=== PATIENT | female | born 1990 | race American Indian/Alaskan Native ===

== ENCOUNTER 2017-09-30 22:54 | Emergency (ER) | payer MEDICAID, OTHER ==
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
[2017-09-30] MEDS ORDERED: Metoclopramide 10 MG/2 ML SDV IVPUSH ONE (23:43)
[2017-09-30] MEDS ORDERED: Meperidine PF 50 MG/ML Syringe IVPUSH ONE (23:43)
[2017-09-30] MEDS ORDERED: Dextrose 5%-0.9% NaCl 1,000 ML IV SCH (23:45)
[2017-10-01 01:54] VITALS: BP 126/80
--- NOTE | 2017-10-01 12:39 | CT ---
Head CT Technique: Multiple axial sections through the brain were obtained. Intravenous contrast was not utilized. Comparison: No previous intracranial imaging. Findings: Ventricles along the basal cisterns and sulci over the convexities are within normal limits for the patient's age. No abnormal parenchymal densities are seen. No evidence of intracranial hemorrhage. No midline shift or mass effect is seen. Bone window settings were reviewed which show no acute calvarial abnormality. Visualized sinuses are clear. Impression: 1. Nothing acute is identified on noncontrast head CT study. Diagnostic code #1 I agree with preliminary report from [facility], finalized at 10/01/17, 2:13 AM Central Time
--- NOTE | 2017-10-01 12:39 | CT ---
CT lumbar spine Technique: Multiple axial sections were obtained through the lumbar spine. Reconstructed coronal and sagittal images were obtained. Findings: Vertebral body heights and disc spaces are maintained. No fracture or subluxation is seen. No traumatic disc herniation is identified. No central canal stenosis or neural foraminal stenosis is seen. Impression: 1. No abnormality is appreciated on CT study of the lumbar spine. Diagnostic code #1 I agree with preliminary report from [facility], finalized at 10/01/17, 2:22 AM Central Time
--- NOTE | 2017-10-01 12:39 | CT ---
CT thoracic spine Technique: Multiple axial sections through the thoracic spine were obtained. Reconstructed coronal and sagittal images were reviewed. Comparison: No previous thoracic spine imaging. Findings: Vertebral body heights and disc spaces are maintained. No bony central or bony neural foraminal stenosis is seen. No fracture is identified. No gross disc herniation is seen. Impression: 1. No abnormality is identified on CT study of the thoracic spine. Diagnostic code #1 I agree with preliminary report from [facility], finalized at 10/01/17, 2:22 AM Central Time
--- NOTE | 2017-10-01 12:39 | CT ---
CT cervical spine Technique: Multiple axial sections through the cervical spine were obtained from above C1 inferiorly to the bottom of T2. Reconstructed sagittal and coronal images were reviewed. Comparison: No prior cervical spine imaging. Findings: Vertebral body heights and disc spaces are maintained. Posterior skull base is intact. Vertebral bodies and posterior arches are intact. No fracture is seen. No bony central or bony neural foraminal stenosis is seen. No abnormal subluxation is seen on the reconstructed sagittal images. Impression: 1. No abnormality is identified on CT study of the cervical spine. Diagnostic code #1 I agree with preliminary report from [facility], finalized at 10/01/17, 2:16 AM Central Time
--- NOTE | 2017-10-01 12:39 | CT ---
CT chest Technique: Multiple axial sections were obtained from above the lung apices inferiorly through the lung bases. Intravenous contrast was utilized. Comparison: No previous chest imaging. Findings: Mediastinum and hilar regions show no adenopathy or mass. No axillary adenopathy is seen. No pericardial thickening is seen. Lungs are clear. No pulmonary contusion or pleural effusions are seen. No pneumothorax is identified. No discrete rib abnormality is seen. Impression: 1. No abnormality is identified on CT study of the chest. Diagnostic code #1 I agree with preliminary report from [facility], finalized at 10/01/17, 2:[address] abdomen and pelvis Technique: Multiple axial sections were obtained from above the dome of the diaphragm inferiorly through the pubic symphysis. Intravenous contrast was utilized. No oral contrast has been given. Comparison: No prior abdominal or pelvic imaging is available. Findings: Liver shows no focal abnormality. Gallbladder contains no calcified gallstones. Spleen appears within normal limits. Adrenal glands show no nodule. Kidneys show symmetric contrast enhancement without hydronephrosis or mass. Several minimal nonobstructing stones are noted within the kidneys. Pancreas appears normal. Aorta shows no aneurysmal dilatation. No retroperitoneal adenopathy or mesenteric abnormalities are seen. No pelvic mass or adenopathy is seen. Delayed images show contrast within the ureters and bladder. Appendix not visualized with certainty. Bone window settings were reviewed which show nothing acute within the lumbar spine or pelvis. Impression: 1. Incidental nonobstructing calculi within both kidneys. 2. Nothing acute seen on CT study of the abdomen and pelvis. Diagnostic code #2 Agree with preliminary report issued by [facility] ([facility] preliminary report dictated on 10/01/17, 2:45 AM Central Time)
== END 2017-10-01 01:59 | disposition home or self-care (01) ==
LOC: JD.ED 22:54
DX: S30.811A Abrasion of abdominal wall, initial encounter (principal); T14.8XXA Other injury of unspecified body region, initial encounter; V09.20XA Pedestrian injured in traffic accident involving unspecified motor vehicles, initial encounter; Y92.410 Unspecified street and highway as the place of occurrence of the external cause
CPT/HCPCS: 36415; 70450; 71260; 72125; 72128; 72131; 74177; 80053; 82550; 85025; 96361; 96374; 96375; 99284; G0480; J2175; J2765; J7042

== ENCOUNTER 2019-12-05 16:09 | Emergency (ER) | payer OTHER ==
[2019-12-05 16:26] VITALS: BP 138/91; PULSE 93
--- NOTE | 2019-12-05 16:30 | EDM.PDOC ---
ED HPI GENERAL MEDICAL PROBLEM - General Chief Complaint: Upper Extremity Injury/Pain Stated Complaint: HAND INJURY 4 DAYS AGO SWELLING AND BURNING Time Seen by Provider: 12/05/19 16:20 Source of Information: Reports: Patient History Limitations: Reports: No Limitations - History of Present Illness INITIAL COMMENTS - FREE TEXT/NARRATIVE: 29-year-old female presents to the ED with severe pain dorsal aspect of her left hand and rating up her forearm and wrist. She states she fell and landed almost knuckles first on the left hand about 4 days ago while she was out in [place]. She did have x-rays performed at the clinic and was told there was no fractures. She was placed in a aluminum splint and Ghanshyam wrap to hold it in place. She has been taking 800 mg of Motrin every 6 hours and pain is uncontrolled. She states the hand is becoming much more painful and swollen in the splint. States she had a small superficial laceration between the second and third webspace of her fingers and therefore is on cephalexin to prevent secondary infection. She denies any possibility of . She denies any other injuries. Onset: Sudden Onset Date: 12/01/19 Duration: Day(s):, Getting Worse Location: Reports: Upper Extremity, Left (Left) Quality: Reports: Ache ( hand wrist and distal forearm) Severity: Moderate (Down to 10 pain) Improves with: Reports: Rest Worsens with: Reports: Movement (Particularly any attempt to make a fist.) Context: Reports: Trauma (All), Other. 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 (She is on 800 mg of Motrin every 6 hours) - Related Data Allergies Allergy/AdvReac Type Severity Reaction Status Date / Time No Known Allergies Allergy Verified 09/30/17 22:59 Home Meds: Home Meds Cephalexin [Keflex] 500 mg PO Q6HR #40 capsule 01/23/15 [Rx] Ondansetron [Zofran ODT] 4 mg PO Q8H PRN #12 tab.dis 01/23/15 [Rx] Vit No.124/Iron/Folic [ Vitamin Tablet] 1 each PO DAILY #30 tablet 01/23/15 [Rx] Ibuprofen [Motrin] 800 mg PO Q8H #15 tablet 10/01/17 [Rx] Acetaminophen/HYDROcodone [[place] 325-5 MG] 1 tab PO Q4H #16 tablet 12/05/19 [Rx] Past Medical History - Past Health History Medical/Surgical History: Denies Medical/Surgical History Psychiatric History: Reports: Anxiety, Depression Social & Family History - Living Situation & Occupation Living situation: Reports: Single Occupation: Unemployed Review of Systems - Review of Systems Review Of Systems: See Below Constitutional: Denies: Chills, Diaphoresis, Fever, Weakness Eyes: Reports: No Symptoms Ears: Reports: No Symptoms Nose: Reports: No Symptoms Mouth/Throat: Reports: No Symptoms Respiratory: Reports: No Symptoms Cardiovascular: Reports: No Symptoms GI/Abdominal: Reports: No Symptoms Genitourinary: Reports: No Symptoms Musculoskeletal: Reports: Hand Pain (History of present illness) Skin: Reports: Other (Swelling and ecchymosis dorsal left hand) Neurological: Reports: No Symptoms Psychiatric: Reports: Depression (Trolled with medications.), Anxiety ED EXAM, GENERAL - Physical Exam Exam: See Below Exam Limited By: No Limitations General Appearance: Alert, WD/WN, Moderate Distress, Other (Vital signs show temperature 36.8. Heart rate 93 respiratory 16 BP 138/91. Pulse ox 97% on room air) Eye Exam: Bilateral Eye: Normal Inspection, PERRL Extremities: Other (Examination was limited to the left upper extremity. She is in a volar aluminum splint. It was wrapped with an Ghanshyam wrap and perhaps a little bit too tight. She has marked ecchymoses of the dorsal aspect of her left hand with marked swelling. Also all of the fingers are swollen from not being able to move. There is a healing superficial 1.5 cm laceration between the webspace of the third and second fingers without any signs of infection. She has very minimal pain on firm compression of the carpal bones. Says some pain in her volar extensor surface of her forearm as well. There is mild ecchymoses on the palmar aspect of the left hand. Splint was removed by me.) Course - Vital Signs Last Recorded V/S: Last Vital Signs Temp 36.8 C 12/05/19 16:21 Pulse 93 12/05/19 16:21 Resp 16 12/05/19 16:21 BP 138/91 H 12/05/19 16:21 Pulse Ox 97 12/05/19 16:21 - Radiology Interpretation Free Text/Narrative:: 29-year-old female presents to the ED for reevaluation of an injury to her left upper extremity from a fall 4 days ago while she was out in [place]. She states she tripped up and fell basically fist first into the concrete. She suffered a superficial laceration between the third and fourth fingers of the left hand which was cleansed and dressed. She had x-rays of her hand and forearm performed and was told there was no fractures. She was placed in a volar aluminum splint and Ghanshyam wrap in place. She states she has been using Motrin 800 mg every 6 hours and not getting any pain relief. The hand and fingers have become much more swollen over the last 36 hours. Pain is constant and throbbing. Denies any other injuries. I remove the splint and there is indeed great amount of swelling dorsal aspect of the left hand suspicious for metacarpal fracture. Minimal pain on firm compression of the carpal bones but some pain in the musculature of the extensor surface of the distal forearm. She is unable to make a fist. Of the fingers are edematous and swollen from not being able to move. Repeat x-rays left hand and wrist area. - Re-Assessments/Exams Free Text/Narrative Re-Assessment/Exam: 12/05/19 16:59 trays of the left hand reveal any fractures of the fingers or metacarpals. 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 Therefore most of the swelling and ecchymosis is due to the trauma to the dorsal hand and knuckles from falling initially plus the fact that she not been able to move them for the last 4 days due to being in a splint. I have advised her to leave the splint off and just simply keep it elevated in the sling and to start slowly begin moving her fingers and allow the swelling to dissipate. I will place her on [place] tabs 5/325 mg 1 or 2 every 4-6 hours for pain relief for the next 2 to 3 days 16 tablets provided. Departure - Departure Time of Disposition: 17:00 Disposition: Home, Self-Care 01 Condition: Fair Clinical Impression: Contusion of left hand including fingers Qualifiers: Encounter type: initial encounter Qualified Code(s): S60.222A - Contusion of left hand, initial encounter - Discharge Information *PRESCRIPTION DRUG MONITORING PROGRAM REVIEWED*: Not Applicable *COPY OF PRESCRIPTION DRUG MONITORING REPORT IN PATIENT VENKATESH: Not Applicable Prescriptions: Acetaminophen/HYDROcodone [[place] 325-5 MG] 1 tab PO Q4H #16 tablet Instructions: How To Use a Sling, [id number], Hand Contusion, [id number] Referrals: PCP,Not In Area [Primary Care Provider] - Forms: ED Department Discharge Additional Instructions: Evaluation in the emergency room today in regards to persistent pain left dorsal hand wrist and forearm. Injury occurred 4 days ago from a fall with blunt force trauma to the knuckles of your left hand and dorsal hand. X-rays done in [place] apparently were reported as negative for fractures. On examination here you have significant bruising and swelling of all of your fingers and dorsal left hand. Repeat x-rays however did not reveal any fractures in any of the finger bones or the metacarpal bones of your hand or wrist bones or your distal forearm. The swelling is partially due to the trauma you experience from the fall but also made worse perhaps by the splint that you are wearing with the Ghanshyam wrap perhaps a bit too tight immobilizing your fingers from ability to pump the blood back to your heart. I would suggest leaving your left hand out of the splint at this time and just keeping it in the sling above the level of your heart for the next 2 to 3 days to allow the swelling to go down. May apply heat to the dorsal hand for 15 to 20 minutes every 3-4 hours to help the swelling go down. Expect marked improvement over the next 3 days. Use [place] 5/325 mg tabs 1 every 4 hours as necessary for pain relief for the next 2 to 3 days until you regain range of motion and the swelling goes down. Sepsis Event Note - Focused Exam Vital Signs: Vital Signs Temp Pulse Resp BP Pulse Ox 12/05/19 16:21 36.8 C 93 16 138/91 H 97 Date Exam was Performed: 12/05/19 Time Exam was Performed: 18:11
--- NOTE | 2019-12-05 17:51 | CR ---
Left hand: 4 views of the left hand were obtained. Comparison: No previous hand or wrist exam. Ununited fracture is noted within the mid navicular bone which appears to be old. Slight collapse of the proximal pole is seen. Soft tissue swelling is noted dorsally. Joint spaces are preserved. No acute fracture or other bony abnormality is appreciated. Impression: 1. 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 2. Soft tissue swelling. 3. No acute bony abnormality is appreciated. Diagnostic code #3 This report was dictated in MDT
== END 2019-12-05 17:22 | disposition home or self-care (01) ==
LOC: JD.ED 16:09
DX: S61.412A Laceration without foreign body of left hand, initial encounter (principal); S60.00XA Contusion of unspecified finger without damage to nail, initial encounter; F41.9 Anxiety disorder, unspecified; F32.9 Major depressive disorder, single episode, unspecified; Z79.899 Other long term (current) drug therapy; W45.8XXA Other foreign body or object entering through skin, initial encounter
CPT/HCPCS: 29125; 73130-26-LT; 73130-LT; 99283; 99283-25

== ENCOUNTER 2020-12-27 03:50 | Inpatient (IN) | payer OTHER, MEDICAID ==
[2020-12-27] MEDS ORDERED: Nitrofurantoin Monohydrate/Macrocrystalline 100 MG Cap PO ONE (06:27)
[2020-12-27] MEDS ORDERED: Acetaminophen/Codeine 300-30 MG Tab PO ONE (06:29)
[2020-12-27] MEDS ORDERED: Sodium Chloride 0.9% 1,000 ML ONE (08:01)
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
[2020-12-27] MEDS ORDERED: Sodium Chloride 0.9% 1,000 ML IV ONE (08:35)
[2020-12-27] MEDS ORDERED: Dextrose 5%-Lactated Ringers 1,000 ML IV SCH (08:45)
[2020-12-27] MEDS: cefTRIAXone 2 GM in Sodium Chloride 0.9% 100 ML IV SCH (08:59)
[2020-12-27] MEDS ORDERED: oxyCODONE 5 MG Tab PO ONE ×2 (09:00→18:21)
--- NOTE | 2020-12-27 10:48 | US ---
Renal ultrasound: Multiple real-time images of the kidneys were obtained. Comparison: No prior renal ultrasound, prior CT abdomen and pelvis exam of 10/01/17. Findings: Right renal pelvis is minimally dilated. Left renal pelvis shows no dilatation. No discrete cyst or discrete solid abnormality is seen within either kidney. Bilateral ureteral jets are seen. Prevoid bladder volume is 192 mL and postvoid bladder volume is 0 mL. Resistivity indices are normal. Right kidney length is 11.3 cm and left kidney length is 10.1 cm. Impression: 1. Slightly dilated collecting system within the right kidney. This may be a normal variant although it can also be seen with infection if the patient has correlating symptoms. 2. Other portions of the renal ultrasound are within normal limits. Diagnostic code #2
--- NOTE | 2020-12-27 10:51 | US ---
Limited abdominal ultrasound: Multiple real-time images of the right upper abdomen were obtained. Gallbladder shows evidence of intraluminal debris compatible with multiple gallstones. Gallbladder wall is normal in size. No biliary duct dilatation is seen. Impression: 1. Gallstones with no gallbladder wall thickening or biliary duct dilatation. Diagnostic code #2
--- NOTE | 2020-12-27 12:07 | PCM.CONS ---
H&P History of Present Illness - General Date of Service: 12/27/20 Admit Problem/Dx: Patient Status Order with Admit Dx/Problem 12/27/20 04:07 Patient Status [ADT] Routine Admission Diagnosis/Problem Admission Diagnosis/Problem 12/27/20 08:12 Deborah is a 30-year-old 3 para 2-0-0-2 female presently at 28 weeks gestational age with an MURRAY of 03/18/2021 who is admitted with right flank/upper abdominal pain in . Source of Information: Patient, Provider History Limitations: Reports: No Limitations - History of Present Illness Initial Comments - Free Text/Narative: Ms. Chapman is a 30-year-old woman who is 7 months who presented to the emergency room early this morning with abdominal pain. Her symptoms began approximately 4 days ago. She describes the pain initially as right flank pain and back pain, which radiated around toward the front and up towards the right shoulder. The pain has been steadily progressing in severity, although she feels better today than yesterday after receiving pain medication. The pain is worse when she is up moving around, bending over, and taking deep breaths. She had one episode of chills and malaise yesterday lasting about an hour but otherwise has had no other symptoms. She was admitted to the labor and delivery unit this morning and work-up to date includes routine labs and ultrasound imaging. Urinalysis suggested possible urinary tract infection, and antibiotics were started. Retroperitoneal ultrasound was without abnormal findings. Ultrasound of the liver showed evidence of gallstones in the gallbladder without signs of biliary obstruction or inflammatory change the gallbladder. Her white count is significantly elevated at 20,000. She denies nausea or vomiting and has been eating a regular diet without problems. Her last regular bowel movement was yesterday, and she continues to pass flatus. She denies dysuria. She has never had abdominal pain like this in the past. She has had no prior abdominal operations. She has no chronic medical problems and no drug allergies. - Related Data Allergies/Adverse Reactions: Allergies Allergy/AdvReac Type Severity Reaction Status Date / Time No Known Allergies Allergy Verified 12/27/20 04:07 Home Medications: Home Meds Vit No.124/Iron/Folic [ Vitamin Tablet] 1 each PO DAILY #30 tablet 01/23/15 [Rx] Ferrous Sulfate [Iron] 325 mg PO DAILY 12/27/20 [History] Past Medical History - Past Health History Medical/Surgical History: Denies Medical/Surgical History Psychiatric History: Reports: Anxiety, Depression Social & Family History - Family History Family Medical History: No Pertinent Family History - Caffeine Use Caffeine Use: Reports: Coffee - Living Situation & Occupation Living situation: Reports: Single Occupation: Unemployed H&P Review of Systems - Review of Systems: Review Of Systems: See Below General: Reports: Chills, Malaise HEENT: Reports: No Symptoms Pulmonary: Reports: No Symptoms Cardiovascular: Reports: No Symptoms Gastrointestinal: Reports: Abdominal Pain, Flatus Genitourinary: Reports: Frequency Musculoskeletal: Reports: No Symptoms Skin: Reports: No Symptoms Psychiatric: Reports: No Symptoms Neurological: Reports: No Symptoms Hematologic/Lymphatic: Reports: No Symptoms Immunologic: Reports: No Symptoms Exam - Exam Exam: See Below - Vital Signs Vital Signs: Last Vital Signs Temp 36.3 C 12/27/20 04:17 Pulse 88 12/27/20 11:07 Resp 16 12/27/20 04:17 BP 99/60 12/27/20 11:07 Pulse Ox 100 12/27/20 04:17 Weight: 89.675 kg - Exam General: Alert, Oriented, Cooperative HEENT: Conjunctiva Clear Neck: Supple, Trachea Midline Lungs: Clear to Auscultation, Normal Respiratory Effort Cardiovascular: Regular Rate, Regular Rhythm GI/Abdominal Exam: Other (Gravid uterus, soft abdomen, no palpable mass or tenderness on deep palpation) - Patient Data Lab Results Last 24 hrs: Laboratory Results - last 24 hr 12/27/20 12/27/20 12/27/20 Range/Units 05:25 05:25 06:50 WBC 21.82 H (3.98-10.04) K/mm3 RBC 3.55 L (3.98-5.22) M/mm3 Hgb 10.1 L D (11.2-15.7) gm/dl Hct 30.1 L (34.1-44.9) % MCV 84.8 D (79.4-94.8) fl MCH 28.5 (25.6-32.2) pg MCHC 33.6 (32.2-35.5) g/dl RDW Std Deviation 37.7 (36.4-46.3) fL Plt Count 203 (182-369) K/mm3 MPV 9.7 (9.4-12.3) fl Neut % (Auto) 86.2 H (34.0-71.1) % Lymph % (Auto) 6.0 L (19.3-51.7) % Grant % (Auto) 6.7 (4.7-12.5) % Eos % (Auto) 0.5 L (0.7-5.8) Baso % (Auto) 0.1 (0.1-1.2) % Neut # (Auto) 18.81 H (1.56-6.13) K/mm3 Lymph # (Auto) 1.31 (1.18-3.74) K/mm3 Grant # (Auto) 1.46 H (0.24-0.36) K/mm3 Eos # (Auto) 0.11 (0.04-0.36) K/mm3 Baso # (Auto) 0.02 (0.01-0.08) K/mm3 Manual Slide Review Abnormal smear Sodium (136-145) mEq/L Potassium (3.5-5.1) mEq/L Chloride (98-107) mEq/L Carbon Dioxide (21-32) mEq/L Anion Gap (5-15) BUN (7-18) mg/dL Creatinine (0.55-1.02) mg/dL Est Cr Clr Drug Dosing mL/min Estimated GFR (MDRD) (>60) mL/min BUN/Creatinine Ratio (14-18) Glucose (70-99) mg/dL Calcium (8.5-10.1) mg/dL Total Bilirubin (0.2-1.0) mg/dL AST (15-37) U/L ALT (14-59) U/L Alkaline Phosphatase (46-116) U/L Total Protein (6.4-8.2) g/dl Albumin (3.4-5.0) g/dl Globulin gm/dL Albumin/Globulin Ratio (1-2) Urine Color Light yellow (Yellow) Urine Appearance Slt cloudy H (Clear) Urine pH 6.0 (5.0-8.0) Ur Specific [place] 1.015 (1.005-1.030) Urine Protein Trace H (Negative) Urine Glucose (UA) Negative (Negative) Urine Ketones Trace H (Negative) Urine Occult Blood Trace-intact H (Negative) Urine Nitrite Negative (Negative) Urine Bilirubin Negative (Negative) Urine Urobilinogen 0.2 (0.2-1.0) Ur Leukocyte Esterase 2+ H (Negative) Urine RBC 0-5 (0-5) /hpf Urine WBC 10-20 H (0-5) /hpf Ur Squamous Epith Cells 0-5 (0-5) /hpf Urine Bacteria Few (FEW) /hpf Urine Mucus Not seen (FEW) /hpf Urine Yeast Rare H (NOT SEEN) Urine Opiates Screen Negative (ZQATFA=299) Ur Buprenorphine Scrn Negative (CUTOFF=10) Ur Oxycodone Screen Negative (WAP2VJ=185) Urine Methadone Screen Negative (TXWJJX=389) Ur Propoxyphene Screen Negative (YKGBBK=932) Ur Barbiturates Screen Negative (VFVVWR=542) Ur Tricyclics Screen Negative (MNDVEB=600) Ur Phencyclidine Scrn Negative (CUTOFF=25) Ur Amphetamine Screen Negative (FKCJKD=894) U Methamphetamines Scrn Negative (SNFTNL=700) U Benzodiazepines Scrn Negative (XLKRWY=072) U Cocaine Metab Screen Negative (ORKLVQ=757) U Marijuana (THC) Screen Negative (CUTOFF=50) 12/27/20 Range/Units 06:50 WBC (3.98-10.04) K/mm3 RBC (3.98-5.22) M/mm3 Hgb (11.2-15.7) gm/dl Hct (34.1-44.9) % MCV (79.4-94.8) fl MCH (25.6-32.2) pg MCHC (32.2-35.5) g/dl RDW Std Deviation (36.4-46.3) fL Plt Count (182-369) K/mm3 MPV (9.4-12.3) fl Neut % (Auto) (34.0-71.1) % Lymph % (Auto) (19.3-51.7) % Grant % (Auto) (4.7-12.5) % Eos % (Auto) (0.7-5.8) Baso % (Auto) (0.1-1.2) % Neut # (Auto) (1.56-6.13) K/mm3 Lymph # (Auto) (1.18-3.74) K/mm3 Grant # (Auto) (0.24-0.36) K/mm3 Eos # (Auto) (0.04-0.36) K/mm3 Baso # (Auto) (0.01-0.08) K/mm3 Manual Slide Review Sodium 140 (136-145) mEq/L Potassium 3.4 L (3.5-5.1) mEq/L Chloride 107 (98-107) mEq/L Carbon Dioxide 24 (21-32) mEq/L Anion Gap 12.4 (5-15) BUN 4 L (7-18) mg/dL Creatinine 0.8 (0.55-1.02) mg/dL Est Cr Clr Drug Dosing 92.53 mL/min Estimated GFR (MDRD) > 60 (>60) mL/min BUN/Creatinine Ratio 5.0 L (14-18) Glucose 105 H (70-99) mg/dL Calcium 8.1 L (8.5-10.1) mg/dL Total Bilirubin 0.4 (0.2-1.0) mg/dL AST 14 L (15-37) U/L ALT 16 (14-59) U/L Alkaline Phosphatase 89 (46-116) U/L Total Protein 6.1 L (6.4-8.2) g/dl Albumin 2.2 L (3.4-5.0) g/dl Globulin 3.9 gm/dL Albumin/Globulin Ratio 0.6 L (1-2) Urine Color (Yellow) Urine Appearance (Clear) Urine pH (5.0-8.0) Ur Specific [place] (1.005-1.030) Urine Protein (Negative) Urine Glucose (UA) (Negative) Urine Ketones (Negative) Urine Occult Blood (Negative) Urine Nitrite (Negative) Urine Bilirubin (Negative) Urine Urobilinogen (0.2-1.0) Ur Leukocyte Esterase (Negative) Urine RBC (0-5) /hpf Urine WBC (0-5) /hpf Ur Squamous Epith Cells (0-5) /hpf Urine Bacteria (FEW) /hpf Urine Mucus (FEW) /hpf Urine Yeast (NOT SEEN) Urine Opiates Screen (DNUQWE=450) Ur Buprenorphine Scrn (CUTOFF=10) Ur Oxycodone Screen (JLY2FA=802) Urine Methadone Screen (SPMXIV=316) Ur Propoxyphene Screen (ERBEWL=616) Ur Barbiturates Screen (HZHQRK=873) Ur Tricyclics Screen (OVUWDK=279) Ur Phencyclidine Scrn (CUTOFF=25) Ur Amphetamine Screen (EHUXBP=905) U Methamphetamines Scrn (ASZHAR=694) U Benzodiazepines Scrn (XWBOWZ=396) U Cocaine Metab Screen (HKCUYS=632) U Marijuana (THC) Screen (CUTOFF=50) Result Diagrams: 12/27/20 06:50 12/27/20 06:50 Sepsis Event Note - Focused Exam Vital Signs: Vital Signs Temp Pulse Pulse Resp BP BP Pulse Ox 12/27/20 11:07 88 99/60 12/27/20 09:57 98 12/27/20 08:39 93 12/27/20 07:33 82 12/27/20 07:03 89 12/27/20 06:38 98 12/27/20 06:03 80 12/27/20 05:33 67 12/27/20 05:03 71 12/27/20 04:33 85 12/27/20 04:17 36.3 C 83 16 108/63 100 12/27/20 04:13 82 Consult PN Assessment/Plan Procedures: Procedures ASSAY OF CK (CPK) (09/30/17) CHORIONIC GONADOTROPIN TEST (01/27/15) COMPLETE CBC W/AUTO DIFF WBC (09/30/17) COMPREHEN METABOLIC PANEL (09/30/17) CT ABD & PELV W/CONTRAST (09/30/17) CT CHEST SPINE W/O DYE (09/30/17) CT HEAD/BRAIN W/O DYE (09/30/17) CT LUMBAR SPINE W/O DYE (09/30/17) CT NECK SPINE W/O DYE (09/30/17) CT THORAX DX C+ (09/30/17) CULTURE SCREEN ONLY (01/23/15) EMERGENCY DEPT VISIT (12/05/19) EMERGENCY DEPT VISIT (09/30/17) EMERGENCY DEPT VISIT (01/23/15) HYDRATE IV INFUSION ADD-ON (09/30/17) ROUTINE VENIPUNCTURE (09/30/17) STREP A AG IA (01/23/15) THER/PROPH/DIAG INJ IV PUSH (09/30/17) TRANSVAGINAL US OBSTETRIC (01/27/15) TX/PRO/DX INJ NEW DRUG ADDON (09/30/17) URINALYSIS AUTO W/SCOPE (01/23/15) URINE CULTURE/COLONY COUNT (01/23/15) URINE TEST (01/23/15) X-RAY EXAM OF ANKLE (01/14/18) X-RAY EXAM OF HAND (12/05/19) Problem List Initiated/Reviewed/Updated: Yes My Orders Last 24 Hours: My Active Orders 12/27/20 12:01 Schedule Procedure [COMM] Routine Plan: History, labs, imaging, and exam are most suggestive of acute calculous cholecystitis, though differential includes appendicitis and pancreatitis. Plan for diagnostic laparoscopy/ laparoscopic cholecystectomy this afternoon.
[2020-12-27] MEDS ORDERED: Sodium Chloride 0.9% 10 ML Syringe FLUSH PRN ×2 (12:36→16:51)
[2020-12-27] MEDS ORDERED: Citric Acid/Sodium Citrate Solution 30 ML Cup PO ONE (12:36)
[2020-12-27] MEDS ORDERED: Lidocaine 1%/Sod Bicarbonate in NS 8.4% 1 ML Syringe IDERM PRN (12:36)
[2020-12-27] MEDS ORDERED: fentaNYL 100 MCG/2 ML SDV IVPUSH PRN (12:37)
[2020-12-27] MEDS ORDERED: HYDROmorphone 0.5 MG/0.5 ML Syringe IVPUSH PRN (12:37)
[2020-12-27] MEDS ORDERED: Ondansetron 4 MG/2 ML SDV IVPUSH PRN (12:37)
[2020-12-27] MEDS ORDERED: Morphine 2 MG/ML SYRINGE IVPUSH PRN (12:38)
--- NOTE | 2020-12-27 12:54 | PCM.PREANE ---
Preanesthetic Assessment - Procedure Proposed Procedure: Lap willy - Anesthesia/Transfusion/Family Hx Anesthesia History: Prior Anesthesia Without Reaction Family History of Anesthesia Reaction: No Transfusion History: No Prior Transfusion(s) Intubation History: Unknown - Review of Systems General: No Symptoms Pulmonary: No Symptoms Cardiovascular: No Symptoms Gastrointestinal: Nausea (yesterday nauea and chills self limiting) Neurological: No Symptoms Other: Reports: None - Physical Assessment NPO Status Date: 12/27/20 NPO Status Time: 10:00 Vital Signs: Last Vital Signs Temp 36.3 C 12/27/20 04:17 Pulse 88 12/27/20 11:07 Resp 16 12/27/20 04:17 BP 99/60 12/27/20 11:07 Pulse Ox 100 12/27/20 04:17 Height: 1.65 m Weight: 89.675 kg ASA Class: 2E Mental Status: Alert & Oriented x3 Thyro-Mental Finger Breadths: 3 Mouth Opening Finger Breadths: 4 ROM/Head Extension: Full Lungs: Clear to Auscultation, Normal Respiratory Effort Cardiovascular: Regular Rate, Regular Rhythm - Lab Values: Laboratory Last Values WBC 21.82 K/mm3 (3.98-10.04) H 12/27/20 06:50 RBC 3.55 M/mm3 (3.98-5.22) L 12/27/20 06:50 Hgb 10.1 gm/dl (11.2-15.7) L D 12/27/20 06:50 Hct 30.1 % (34.1-44.9) L 12/27/20 06:50 MCV 84.8 fl (79.4-94.8) D 12/27/20 06:50 MCH 28.5 pg (25.6-32.2) 12/27/20 06:50 MCHC 33.6 g/dl (32.2-35.5) 12/27/20 06:50 RDW Std Deviation 37.7 fL (36.4-46.3) 12/27/20 06:50 Plt Count 203 K/mm3 (182-369) 12/27/20 06:50 MPV 9.7 fl (9.4-12.3) 12/27/20 06:50 Neut % (Auto) 86.2 % (34.0-71.1) H 12/27/20 06:50 Lymph % (Auto) 6.0 % (19.3-51.7) L 12/27/20 06:50 [place] % (Auto) 6.7 % (4.7-12.5) 12/27/20 06:50 Eos % (Auto) 0.5 (0.7-5.8) L 12/27/20 06:50 Baso % (Auto) 0.1 % (0.1-1.2) 12/27/20 06:50 Neut # (Auto) 18.81 K/mm3 (1.56-6.13) H 12/27/20 06:50 Lymph # (Auto) 1.31 K/mm3 (1.18-3.74) 12/27/20 06:50 [place] # (Auto) 1.46 K/mm3 (0.24-0.36) H 12/27/20 06:50 Eos # (Auto) 0.11 K/mm3 (0.04-0.36) 12/27/20 06:50 Baso # (Auto) 0.02 K/mm3 (0.01-0.08) 12/27/20 06:50 Manual Slide Review Abnormal smear 12/27/20 06:50 Sodium 140 mEq/L (136-145) 12/27/20 06:50 Potassium 3.4 mEq/L (3.5-5.1) L 12/27/20 06:50 Chloride 107 mEq/L (98-107) 12/27/20 06:50 Carbon Dioxide 24 mEq/L (21-32) 12/27/20 06:50 Anion Gap 12.4 (5-15) 12/27/20 06:50 BUN 4 mg/dL (7-18) L 12/27/20 06:50 Creatinine 0.8 mg/dL (0.55-1.02) 12/27/20 06:50 Est Cr Clr Drug Dosing 92.53 mL/min 12/27/20 06:50 Estimated GFR (MDRD) > 60 mL/min (>60) 12/27/20 06:50 BUN/Creatinine Ratio 5.0 (14-18) L 12/27/20 06:50 Glucose 105 mg/dL (70-99) H 12/27/20 06:50 Calcium 8.1 mg/dL (8.5-10.1) L 12/27/20 06:50 Total Bilirubin 0.4 mg/dL (0.2-1.0) 12/27/20 06:50 AST 14 U/L (15-37) L 12/27/20 06:50 ALT 16 U/L (14-59) 12/27/20 06:50 Alkaline Phosphatase 89 U/L (46-116) 12/27/20 06:50 Total Protein 6.1 g/dl (6.4-8.2) L 12/27/20 06:50 Albumin 2.2 g/dl (3.4-5.0) L 12/27/20 06:50 Globulin 3.9 gm/dL 12/27/20 06:50 Albumin/Globulin Ratio 0.6 (1-2) L 12/27/20 06:50 Lipase 93 U/L (73-393) 12/27/20 12:09 Urine Color Light yellow (Yellow) 12/27/20 05:25 Urine Appearance Slt cloudy (Clear) H 12/27/20 05:25 Urine pH 6.0 (5.0-8.0) 12/27/20 05:25 Ur Specific [place] 1.015 (1.005-1.030) 12/27/20 05:25 Urine Protein Trace (Negative) H 12/27/20 05:25 Urine Glucose (UA) Negative (Negative) 12/27/20 05:25 Urine Ketones Trace (Negative) H 12/27/20 05:25 Urine Occult Blood Trace-intact (Negative) H 12/27/20 05:25 Urine Nitrite Negative (Negative) 12/27/20 05:25 Urine Bilirubin Negative (Negative) 12/27/20 05:25 Urine Urobilinogen 0.2 (0.2-1.0) 12/27/20 05:25 Ur Leukocyte Esterase 2+ (Negative) H 12/27/20 05:25 Urine RBC 0-5 /hpf (0-5) 12/27/20 05:25 Urine WBC 10-20 /hpf (0-5) H 12/27/20 05:25 Ur Squamous Epith Cells 0-5 /hpf (0-5) 12/27/20 05:25 Urine Bacteria Few /hpf (FEW) 12/27/20 05:25 Urine Mucus Not seen /hpf (FEW) 12/27/20 05:25 Urine Yeast Rare (NOT SEEN) H 12/27/20 05:25 Urine Opiates Screen Negative (PNJNFA=967) 12/27/20 05:25 Ur Buprenorphine Scrn Negative (CUTOFF=10) 12/27/20 05:25 Ur Oxycodone Screen Negative (HCP1OB=420) 12/27/20 05:25 Urine Methadone Screen Negative (VTGUTW=817) 12/27/20 05:25 Ur Propoxyphene Screen Negative (YBTZHR=939) 12/27/20 05:25 Ur Barbiturates Screen Negative (CXPECE=481) 12/27/20 05:25 Ur Tricyclics Screen Negative (DWTLXD=058) 12/27/20 05:25 Ur Phencyclidine Scrn Negative (CUTOFF=25) 12/27/20 05:25 Ur Amphetamine Screen Negative (CCUVOP=956) 12/27/20 05:25 U Methamphetamines Scrn Negative (FSZFYB=620) 12/27/20 05:25 U Benzodiazepines Scrn Negative (VRYLVG=127) 12/27/20 05:25 U Cocaine Metab Screen Negative (BIZGEI=557) 12/27/20 05:25 U Marijuana (THC) Screen Negative (CUTOFF=50) 12/27/20 05:25 - Allergies Allergies/Adverse Reactions: Allergies Allergy/AdvReac Type Severity Reaction Status Date / Time No Known Allergies Allergy Verified 12/27/20 04:07 - Blood Blood Available: Yes Product(s) Available: PRBC - Anesthesia Plan Pre-Op Medication Ordered: Antacids (bicitra/reglan ) - Acknowledgements Anesthesia Type Planned: General Anesthesia Pt an Appropriate Candidate for the Planned Anesthesia: Yes Alternatives and Risks of Anesthesia Discussed w Pt/Guardian: Yes Pt/Guardian Understands and Agrees with Anesthesia Plan: Yes Additional Comments: she does have an ankle bracelet on that is on her right ankle. she told the RN and i that hospital personal can take it off if necessary. i don't believe it should be necessary, however, i informed her to inform her public records officer that she is in the hospital and will be getting medications for surgery with us PreAnesthesia Questionnaire - Past Health History Medical/Surgical History: Denies Medical/Surgical History Psychiatric History: Reports: Anxiety, Depression - HOME MEDS Home Medications: Home Meds Vit No.124/Iron/Folic [ Vitamin Tablet] 1 each PO DAILY #30 tablet 01/23/15 [Rx] Ferrous Sulfate [Iron] 325 mg PO DAILY 12/27/20 [History] - CURRENT (IN HOUSE) MEDS Current Meds: Current Medications Fentanyl (Fentanyl 100 Mcg/2 Ml Sdv) 50 mcg IVPUSH Q5M PRN PRN Reason: Pain Hydromorphone HCl (Hydromorphone 0.5 Mg/0.5 Ml Syringe) 0.5 mg IVPUSH Q10M PRN PRN Reason: Pain (severe 7-10) Ceftriaxone Sodium 2 gm/ (Sodium Chloride) 100 mls @ 200 mls/hr IV Q24H [facility] Last Admin: 12/27/20 08:59 Dose: 200 mls/hr Documented by: Dextrose/Lactated Ringer's (Dextrose 5%-Lactated Ringers) 1,000 mls @ 150 mls/hr IV ASDIRECTED [facility] Last Admin: 12/27/20 09:40 Dose: 150 mls/hr Documented by: Lactated Ringer's (Ringers, Lactated) 1,000 mls @ 125 mls/hr IV ASDIRECTED [facility] Lidocaine/Sodium Bicarbonate (Lidocaine 1%/Sod Bicarbonate In Ns 8.4% 1 Ml Syringe) 0.25 ml IDERM ONETIME PRN PRN Reason: Prior to IV Start Morphine Sulfate (Morphine 2 Mg/Ml Syringe) 5 mg IVPUSH Q2H PRN PRN Reason: Pain Ondansetron HCl (Ondansetron 4 Mg/2 Ml Sdv) 4 mg IVPUSH ONETIME PRN PRN Reason: Nausea/Vomiting Oxycodone/Acetaminophen (Acetaminophen/Oxycodone 325-5 Mg Tab) 1 tab PO Q4H PRN PRN Reason: Pain (moderate 4-6) Oxycodone/Acetaminophen (Acetaminophen/Oxycodone 325-5 Mg Tab) 2 tab PO Q4H PRN PRN Reason: Pain (severe 7-10) Sodium Chloride (Sodium Chloride 0.9% 10 Ml Syringe) 10 ml FLUSH ASDIRECTED PRN PRN Reason: Keep Vein Open Discontinued Medications Acetaminophen/Codeine Phosphate (Acetaminophen/Codeine 300-30 Mg Tab) 2 tab PO ONETIME ONE Stop: 12/27/20 06:30 Last Admin: 12/27/20 07:04 Dose: 2 tab Documented by: Citric Acid/Sodium Citrate (Citric Acid/Sodium Citrate Solution 30 Ml Cup) 30 ml PO ONETIME ONE Stop: 12/27/20 12:37 Sodium Chloride (Normal Saline) Confirm Administered Dose 1,000 mls @ as directed .ROUTE .STK-MED ONE Stop: 12/27/20 08:02 Last Admin: 12/27/20 08:34 Dose: 999 mls/hr Documented by: Sodium Chloride (Normal Saline) 1,000 mls @ 999 mls/hr IV ONETIME ONE Stop: 12/27/20 09:35 Last Admin: 12/27/20 08:54 Dose: 999 mls/hr Documented by: Nitrofurantoin Macrocrystals (Nitrofurantoin Monohydrate/Macrocrystalline 100 Mg Cap) 100 mg PO ONETIME ONE Stop: 12/27/20 06:28 Last Admin: 12/27/20 07:04 Dose: 100 mg Documented by: Oxycodone HCl (Oxycodone 5 Mg Tab) 10 mg PO ONETIME ONE Stop: 12/27/20 09:01 Last Admin: 12/27/20 08:52 Dose: 10 mg Documented by:
[2020-12-27] MEDS ORDERED: fentaNYL 250 MCG/5 ML SDV ONE (13:17)
[2020-12-27] MEDS ORDERED: Rocuronium 50 MG/5 ML Vial ONE (13:17)
[2020-12-27] MEDS ORDERED: ceFAZolin 1 GM Vial ONE (13:17)
[2020-12-27] MEDS ORDERED: Lidocaine 1% 2 ML ONE (13:17)
[2020-12-27] MEDS ORDERED: Propofol 200 MG/20 ML SDV ONE (13:17)
[2020-12-27] MEDS ORDERED: Dexamethasone 4 MG/ML 5 ML MDV ONE (13:18)
[2020-12-27] MEDS ORDERED: Ondansetron 4 MG/2 ML SDV ONE (13:18)
[2020-12-27] MEDS ORDERED: Diphtheria,Pertussis(Acell),Tetanus Vaccine 0.5 ML Syringe IM ONE ×2 (14:27→14:45)
--- NOTE | 2020-12-27 16:33 | PCM.SN.2 ---
- Free Text/Narrative Note: Re-examined patient now- pain is worse, with chills. She has right CVA tenderness. Discussed with Dr. Padilla. I think the benefit of a CT of the abdomen and pelvis with IV contrast to rule out appendicitis may be helpful in avoiding going to the OR. If findings are more consistent with cholelithiasis or pyelonephritis we may be able to manage this for now with antibiotics alone. I discussed with patient and the team is in agreement with plan for CT scan now. OR plans are dependent on imaging findings and patient's clinical course.
[2020-12-27] MEDS: Lactated Ringers 1,000 ML IV SCH ×2 (16:35→19:21)
[2020-12-27] MEDS ORDERED: Iopamidol 612 MG/ML 100 ML Bottle IVPUSH ONE (16:51)
[2020-12-27] MEDS ORDERED: Metoclopramide 10 MG/2 ML SDV IV PRN (17:00)
[2020-12-27] MEDS ORDERED: Acetaminophen 325 MG Tab PO ONE (17:31)
[2020-12-27] MEDS ORDERED: Lactated Ringers 1,000 ML IV ONE (18:19)
--- NOTE | 2020-12-27 18:56 | CT ---
CT abdomen and pelvis Technique: Multiple axial sections through the abdomen and pelvis were obtained. Intravenous contrast was utilized. No oral contrast has been given. Comparison: Prior renal ultrasound exam performed earlier on the same day (8:52 AM) and prior gallbladder ultrasound also performed on the same day (9:35 AM). Prior CT abdomen and pelvis exam of 10/01/17. Findings: Visualized lung bases are clear with no acute parenchymal change. Liver shows no focal abnormality. Spleen size is normal. Adrenal glands show no nodule. No abnormality is seen within the pancreas. Gallbladder contains no calcified gallstones. Gallstones are seen on ultrasound exam which are not visualized on this CT study. Left kidneys show normal contrast enhancement. Diminished enhancement is noted within portions of the upper pole of the right kidney as well as a small area of diminished enhancement within the lower pole of the right kidney. Right ureter is also slightly prominent. As suggested on the renal ultrasound, these finding are highly suspicious for pyelonephritis. Abdominal aorta shows no aneurysm. No retroperitoneal adenopathy or mesenteric abnormalities are seen. Single intrauterine fetus is noted. Appendix is not visualized and there are no findings of appendicitis. No discrete pelvic mass or adenopathy is appreciated. Bone window settings were reviewed which show no acute osseous abnormality. Impression: 1. Findings within the right kidney and proximal right ureter are highly suspicious for pyelonephritis as suggested on recent ultrasound. 2. Patient is . 3. No other acute abnormality is seen on CT study of the abdomen and pelvis. Diagnostic code #3 I agree with preliminary report from [facility], finalized on 12/27/20, 6:56 PM CDT, code 1
--- NOTE | 2020-12-27 19:17 | PCM.SN.2 ---
- Free Text/Narrative Note: Progress note Subjective: Patient reports feeling well overall. Pain continues to be present and is improved with oral and IV medications. She reports that the pain starts to increase as the medication wears off. Tolerating regular diet. Voiding without difficulty. Ambulating without difficulty. Reports good movement. Objective: Vitals Vital Signs - 24 hr 12/27/20 12/27/20 12/27/20 04:13 04:17 04:33 Temperature Temperature [ 36.3 C Temporal] Pulse, 82 85 Peripheral Pulse, 83 Peripheral [ Pulse Oximetry] Respiratory 16 Rate Blood Pressure Blood Pressure 108/63 [Right Upper] O2 Sat by Pulse 100 Oximetry 12/27/20 12/27/20 12/27/20 05:03 05:33 06:03 Temperature Temperature [ Temporal] Pulse, 71 67 80 Peripheral Pulse, Peripheral [ Pulse Oximetry] Respiratory Rate Blood Pressure Blood Pressure [Right Upper] O2 Sat by Pulse Oximetry 12/27/20 12/27/20 12/27/20 06:38 07:03 07:33 Temperature Temperature [ Temporal] Pulse, 98 89 82 Peripheral Pulse, Peripheral [ Pulse Oximetry] Respiratory Rate Blood Pressure Blood Pressure [Right Upper] O2 Sat by Pulse Oximetry 12/27/20 12/27/20 12/27/20 08:39 09:57 11:07 Temperature Temperature [ Temporal] Pulse, 93 98 88 Peripheral Pulse, Peripheral [ Pulse Oximetry] Respiratory Rate Blood Pressure 99/60 Blood Pressure [Right Upper] O2 Sat by Pulse Oximetry 12/27/20 17:38 Temperature 39.2 C H Temperature [ Temporal] Pulse, Peripheral Pulse, Peripheral [ Pulse Oximetry] Respiratory Rate Blood Pressure Blood Pressure [Right Upper] O2 Sat by Pulse Oximetry Gen: No acute distress, alert and oriented Lungs: Unlabored breathing Heart: Tachycardia with heart rate in the 130s Abdomen: Soft, mild tenderness in the right upper lateral portion of the abdomen, right CVA tenderness, no guarding or rebound tenderness, no distention, gravid, no left CVA tenderness or left sided abdominal pain Assesment/Plan: Deborah Chapman is a 30-year-old -0-0-2 female at 28 weeks 3 days (MURRAY 03/18/2021) with pyelonephritis in and gallstones on ultrasound imaging without evidence of cholecystitis on CT scan * Pyelonephritis -patient diagnosed with pyelonephritis after having some concern for possible cholecystitis given gallstones on ultrasound. Patient had a CT scan that showed findings consistent with pyelonephritis and no evidence of cholecystitis or appendicitis. Patient developed a fever after she had the CT scan with fever up to 39.2 C. Patient has been treated with Tylenol 975 mg. Patient had been treated with Rocephin 2 g IV this morning. We will continue treatment with the Rocephin 2 g IV every 24 hours until she has had resolution of her pain and has been afebrile for 24 hours. * Plan for NST daily or more often as needed with concerns for wellbeing * Patient admitted to the hospital for ongoing treatment for pyelonephritis with IV antibiotics * Routine vitals for monitoring of blood pressure as well as for fever * Regular diet * Patient given IV fluid bolus of 1000 mL due to the fever and to continue on lactated Ringer's at 150 mL/h after 4 ongoing fluid hydration * We will follow up on the urine culture to ensure that the bacteria is sensitive to the chosen antibiotic * Anticipate discharge home once patient has improved and there is decreased amount of CVA tenderness and she has been afebrile for 24 hours Carlito Padilla MD 7:16 PM 12/27/2020
[2020-12-27] MEDS ORDERED: Docusate Sodium 100 MG Cap PO PRN (20:21)
[2020-12-28] MEDS: Acetaminophen/oxyCODONE 325-5 MG Tab PO PRN ×5 (01:17→19:05)
[2020-12-28] MEDS: Lactated Ringers 1,000 ML IV SCH ×2 (02:38→10:24)
[2020-12-28] MEDS: cefTRIAXone 2 GM in Sodium Chloride 0.9% 100 ML IV SCH (08:54)
[2020-12-28] MEDS: Ferrous Sulfate 324 MG Tab.EC PO SCH (08:56)
[2020-12-28] MEDS: Prenatal Multivitamin with Calcium/Folic Acid/Iron Tab PO SCH (08:56)
--- NOTE | 2020-12-28 09:51 | PCM.SN.2 ---
- Free Text/Narrative Note: Antepartum progress note Subjective: Patient reports feeling well overall. She reports that she is continuing to have some right-sided back pain but that it has been able to be controlled with oral medications. She used to Percocet at around 1 AM and then only required 1 Percocet at around 5:30 AM. She states that the pain has been significant enough to make it difficult for her to be able to sleep throughout the night. Tolerating regular diet but did have some nausea last evening after eating. Voiding without difficulty. Reports that she has not had a bowel movement in several days. Denies any significant pain or pressure similar to a bowel movement. Ambulating without difficulty. Reports good movement. Denies any cramping or contractions. Objective: Vitals Vital Signs - 8 hr 12/28/20 12/28/20 05:34 09:00 Temperature 36.7 C 36.4 C Pulse, 67 70 Peripheral Respiratory 14 14 Rate Blood Pressure 103/52 L 103/81 O2 Sat by Pulse 97 97 Oximetry Gen: No acute distress, alert and oriented Lungs: Clear to auscultation bilaterally Heart: Regular rate and rhythm Abdomen: Soft, mild right CVA tenderness that is less than it was on previous exam on HD #1, no guarding or rebound tenderness, no distention, gravid, no left CVA tenderness or left sided abdominal pain Extremities: No significant edema noted in bilateral lower extremities, no calf tenderness bilaterally NST in the morning of 12/28 heart rate: 130s, moderate variability, +10 x 10 accelerations, no decelerations Tocometer: Quiet Laboratory Results - last 24 hr 12/27/20 12/27/20 12/27/20 Range/Units 06:50 12:09 12:45 WBC (3.98-10.04) K/mm3 RBC (3.98-5.22) M/mm3 Hgb (11.2-15.7) gm/dl Hct (34.1-44.9) % MCV (79.4-94.8) fl MCH (25.6-32.2) pg MCHC (32.2-35.5) g/dl RDW Std Deviation (36.4-46.3) fL Plt Count (182-369) K/mm3 MPV (9.4-12.3) fl Neut % (Auto) (34.0-71.1) % Lymph % (Auto) (19.3-51.7) % [place] % (Auto) (4.7-12.5) % Eos % (Auto) (0.7-5.8) Baso % (Auto) (0.1-1.2) % Neut # (Auto) (1.56-6.13) K/mm3 Lymph # (Auto) (1.18-3.74) K/mm3 [place] # (Auto) (0.24-0.36) K/mm3 Eos # (Auto) (0.04-0.36) K/mm3 Baso # (Auto) (0.01-0.08) K/mm3 Manual Slide Review Lipase 93 (73-393) U/L SARS-CoV-2 RNA (DORINDA) Negative (NEGATIVE) Blood Type A POSITIVE Gel Antibody Screen Negative 12/28/20 Range/Units 08:00 WBC 20.34 H (3.98-10.04) K/mm3 RBC 3.15 L (3.98-5.22) M/mm3 Hgb 8.8 L (11.2-15.7) gm/dl Hct 27.2 L (34.1-44.9) % MCV 86.3 (79.4-94.8) fl MCH 27.9 (25.6-32.2) pg MCHC 32.4 (32.2-35.5) g/dl RDW Std Deviation 39.2 (36.4-46.3) fL Plt Count 191 (182-369) K/mm3 MPV 10.1 (9.4-12.3) fl Neut % (Auto) 76.6 H (34.0-71.1) % Lymph % (Auto) 12.2 L (19.3-51.7) % [place] % (Auto) 9.8 (4.7-12.5) % Eos % (Auto) 1.0 (0.7-5.8) Baso % (Auto) 0.1 (0.1-1.2) % Neut # (Auto) 15.57 H (1.56-6.13) K/mm3 Lymph # (Auto) 2.49 (1.18-3.74) K/mm3 [place] # (Auto) 1.99 H (0.24-0.36) K/mm3 Eos # (Auto) 0.20 (0.04-0.36) K/mm3 Baso # (Auto) 0.02 (0.01-0.08) K/mm3 Manual Slide Review Abnormal smear Lipase (73-393) U/L SARS-CoV-2 RNA (DORINDA) (NEGATIVE) Blood Type Gel Antibody Screen Imaging report Abdomen pelvis CT with contrast done on 12/27/2020 Impression: 1. Findings within the right kidney and proximal right ureter are highly suspicious for pyelonephritis as suggested on recent ultrasound. 2. Patient is . 3. No other acute abnormalities seen on CT study of the abdomen pelvis. Assessment/Plan: Deborah Chapman is a 30-year-old -0-0-2 female at 28 weeks 4 days (MURRAY 03/18/2021) with pyelonephritis in and gallstones on ultrasound imaging without evidence of cholecystitis on CT scan, HD #2 * Pyelonephritis -patient diagnosed with pyelonephritis based on findings from CT scan. Patient had a fever in the evening of HD #1 up to 39.2 C. Patient continues to have significant leukocytosis with WBC of 20.34. The neutrophil percent is also elevated at 76.6%. * Continue Rocephin 2 g IV daily for treatment of pyelonephritis * Plan for NST daily or more often as needed with concerns for wellbeing * Routine vitals for monitoring of blood pressure as well as for fever * Regular diet * Start Colace 100 mg twice daily for prevention of of constipation with and oral narcotic use * Patient to continue with IV fluids this morning until she is able to tolerate a regular diet. Once she is tolerating regular diet without any difficulty we will saline lock the IV. * Follow up on the urine culture to ensure that the bacteria is sensitive to the chosen antibiotic * Dr. Velásquez recommends for patient to follow-up for her gallstones if she has any symptoms or complications with the gallstones. He states that she does not need routine follow-up for asymptomatic cholelithiasis that the patient currently has. * Anticipate discharge home once patient has decreased amount of CVA tenderness and she has been afebrile for 24 hours, plan to reassess this evening for possible discharge Carlito Padilla MD 9:49 AM 12/28/2020
--- NOTE | 2020-12-28 19:08 | PCM.SN.2 ---
- Free Text/Narrative Note: Antepartum progress note Subjective: She reports that she is feeling better this afternoon than she was this morning. She did have increased amounts of pain this afternoon when she woke up from a nap and took 2 Percocet at that time that helped with her pain. She also took a warm shower that helped to relax her back. She has felt feverish and chills at times throughout the day today. She is tolerating a regular diet without any nausea or vomiting. She is voiding without difficulty. She denies any abdominal pain or cramping. Denies any contractions. Denies any leaking of fluid. Denies any vaginal bleeding. Reports good movement. Objective: Vitals Vital Signs - 8 hr 12/28/20 12/28/20 12/28/20 12:00 15:02 15:06 Temperature 36.7 C 36.7 C Temperature [ 36.6 C Temporal] Pulse, 81 82 Peripheral Respiratory 14 Rate Blood Pressure 107/56 L O2 Sat by Pulse 100 96 Oximetry Gen: No acute distress, alert and oriented Lungs: Unlabored breathing Heart: Regular rate Abdomen: Soft, decreased right CVA tenderness this afternoon compared to the morning of HD #2, no guarding or rebound tenderness, no distention, gravid, no left CVA tenderness or left sided abdominal pain Extremities: No significant edema noted in bilateral lower extremities, no calf tenderness bilaterally Assessment/Plan: Deborah Chapman is a 30-year-old -0-0-2 female at 28 weeks 4 days (MURRAY 03/18/2021) with pyelonephritis in and gallstones on ultrasound imaging without evidence of cholecystitis on CT scan, HD #2 * Pyelonephritis -patient diagnosed with pyelonephritis based on findings from CT scan. Patient had a fever in the evening of HD #1 up to 39.2 C. Patient continues to have significant leukocytosis with WBC of 20.34. The neutrophil percent is also elevated at 76.6%. * Continue Rocephin 2 g IV daily for treatment of pyelonephritis * Plan for repeat CBC in the morning of HD #3 * Plan for NST daily or more often as needed with concerns for wellbeing * Routine vitals * Regular diet * Start Colace 100 mg twice daily for prevention of of constipation with and oral narcotic use * Patient tolerating regular diet and has not having any nausea or vomiting. Discontinue IV fluids at this time and keep IV saline lock for IV antibiotics. * Urine culture preliminary report shows E. coli growth with 10-50,000 CFU's of E. coli. Sensitivities not available at this time. * Dr. Velásquez recommends for patient to follow-up for her gallstones if she has any symptoms or complications with the gallstones. He states that she does not need routine follow-up for asymptomatic cholelithiasis that the patient currently has. * Anticipate discharge home once patient has decreased amount of CVA tenderness and she has been afebrile for 24 hours, patient improving this afternoon but do not feel that she is stable for discharge at this time. Patient has been afebrile but has been having increased amount of pain in the afternoon. Given ongoing elevation of her white blood cell count I would recommend for her to be continue to be monitored overnight and anticipate discharge during the day of HD #3 Carlito Padilla MD 7:11 PM 12/28/2020
[2020-12-29] MEDS: Acetaminophen/oxyCODONE 325-5 MG Tab PO PRN ×3 (00:27→09:20)
--- NOTE | 2020-12-29 07:33 | PCM.DCSUM1 ---
Discharge Summary - Hospital Course HPI Initial Comments: Doing well today and feeling much better. Labs significantly improved. Feels ready to go home. Sensitivities pending. Diagnosis: Stroke: No - Discharge Data Discharge Date: 12/29/20 Discharge Disposition: Home, Self-Care 01 Condition: Good - Referral to Home Health Primary Care Physician: Bill Guerrier MD - Patient Summary/Data Consults: Consultations 12/27/20 11:24 Consult to Physician [CONS] Routine Hospital Course: 1.Deborah is a 30-year-old 3 para 2-0-0-2 female presently at 28 weeks gestational age with an MURRAY of 03/18[birth year]21 who is admitted with right flank/upper abdominal pain in . Eventual pyelonephritis diagnosis. 2. 28-week appears to be doing well at this point by monitoring. Plan: 1. We will initiate empiric IV therapy for suspected pyonephritis with ceftriaxone 2 g IV every 24 hours. Ok for discharge on keflex now. 2. Follow up 1 week. Warnings given. - Patient Instructions Diet: Heart Healthy Diet Activity: No Strenuous Activities Driving: May Drive Today Showering/Bathing: May Shower Notify Provider of: Fever, Increased Pain - Discharge Plan *PRESCRIPTION DRUG MONITORING PROGRAM REVIEWED*: No *COPY OF PRESCRIPTION DRUG MONITORING REPORT IN PATIENT VENKATESH: No Home Medications: Home Meds Vit No.124/Iron/Folic [ Vitamin Tablet] 1 each PO DAILY #30 tablet 01/23/15 [Rx] Ferrous Sulfate [Iron] 325 mg PO DAILY 12/27/20 [History] Referrals: Bill Guerrier MD [Primary Care Provider] - (1-2 weeks) - Discharge Summary/Plan Comment DC Time >30 min.: No - General Info Date of Service: 12/29/20 Functional Status: Reports: Pain Controlled - Review of Systems General: Reports: No Symptoms HEENT: Reports: No Symptoms Pulmonary: Reports: No Symptoms Cardiovascular: Reports: No Symptoms Gastrointestinal: Reports: No Symptoms Genitourinary: Reports: No Symptoms Musculoskeletal: Reports: No Symptoms Skin: Reports: No Symptoms Neurological: Reports: No Symptoms Psychiatric: Reports: No Symptoms - Patient Data Vitals - Most Recent: Last Vital Signs Temp 36.9 C 12/29/20 03:57 Pulse 84 12/29/20 03:57 Resp 16 12/29/20 03:57 BP 108/58 L 12/29/20 03:57 Pulse Ox 98 12/29/20 03:57 Weight - Most Recent: 89.086 kg I&O - Last 24 hours: Intake & Output 12/28/20 12/29/20 12/29/20 22:59 06:59 14:59 Intake Total 1580 800 Balance 1580 800 Lab Results - Last 24 hrs: Laboratory Results - last 24 hr 12/28/20 12/29/20 Range/Units 08:00 05:05 WBC 20.34 H 15.00 H (3.98-10.04) K/mm3 RBC 3.15 L 3.34 L (3.98-5.22) M/mm3 Hgb 8.8 L 9.3 L (11.2-15.7) gm/dl Hct 27.2 L 28.8 L (34.1-44.9) % MCV 86.3 86.2 (79.4-94.8) fl MCH 27.9 27.8 (25.6-32.2) pg MCHC 32.4 32.3 (32.2-35.5) g/dl RDW Std Deviation 39.2 38.8 (36.4-46.3) fL Plt Count 191 218 (182-369) K/mm3 MPV 10.1 10.4 (9.4-12.3) fl Neut % (Auto) 76.6 H 71.5 H (34.0-71.1) % Lymph % (Auto) 12.2 L 16.9 L (19.3-51.7) % [place] % (Auto) 9.8 9.9 (4.7-12.5) % Eos % (Auto) 1.0 1.3 (0.7-5.8) Baso % (Auto) 0.1 0.1 (0.1-1.2) % Neut # (Auto) 15.57 H 10.74 H (1.56-6.13) K/mm3 Lymph # (Auto) 2.49 2.53 (1.18-3.74) K/mm3 [place] # (Auto) 1.99 H 1.48 H (0.24-0.36) K/mm3 Eos # (Auto) 0.20 0.19 (0.04-0.36) K/mm3 Baso # (Auto) 0.02 0.02 (0.01-0.08) K/mm3 Manual Slide Review Abnormal smear LIBBY Results - Last 24 hrs: Microbiology 12/27/20 05:25 Urine Culture - Preliminary Urine Escherichia Coli Med Orders - Current: Current Medications Docusate Sodium (Docusate Sodium 100 Mg Cap) 100 mg PO Q12H PRN PRN Reason: Constipation Last Admin: 12/28/20 08:55 Dose: 100 mg Documented by: Fentanyl (Fentanyl 100 Mcg/2 Ml Sdv) 50 mcg IVPUSH Q5M PRN PRN Reason: Pain Ferrous Sulfate (Ferrous Sulfate 324 Mg Tab.Ec) 324 mg PO DAILY [facility] Last Admin: 12/28/20 08:56 Dose: 324 mg Documented by: Hydromorphone HCl (Hydromorphone 0.5 Mg/0.5 Ml Syringe) 0.5 mg IVPUSH Q10M PRN PRN Reason: Pain (severe 7-10) Ceftriaxone Sodium 2 gm/ (Sodium Chloride) 100 mls @ 200 mls/hr IV Q24H [facility] Last Admin: 12/28/20 08:54 Dose: 200 mls/hr Documented by: Lidocaine/Sodium Bicarbonate (Lidocaine 1%/Sod Bicarbonate In Ns 8.4% 1 Ml Syringe) 0.25 ml IDERM ONETIME PRN PRN Reason: Prior to IV Start Metoclopramide HCl (Metoclopramide 10 Mg/2 Ml Sdv) 10 mg IV ONETIME PRN PRN Reason: Nausea/Vomiting Morphine Sulfate (Morphine 2 Mg/Ml Syringe) 5 mg IVPUSH Q2H PRN PRN Reason: Pain Last Admin: 12/27/20 13:29 Dose: 5 mg Documented by: Ondansetron HCl (Ondansetron 4 Mg/2 Ml Sdv) 4 mg IVPUSH ONETIME PRN PRN Reason: Nausea/Vomiting Oxycodone/Acetaminophen (Acetaminophen/Oxycodone 325-5 Mg Tab) 1 tab PO Q4H PRN PRN Reason: Pain (moderate 4-6) Last Admin: 12/28/20 10:21 Dose: 1 tab Documented by: Oxycodone/Acetaminophen (Acetaminophen/Oxycodone 325-5 Mg Tab) 2 tab PO Q4H PRN PRN Reason: Pain (severe 7-10) Last Admin: 12/29/20 04:05 Dose: 2 tab Documented by: Prenat Multivit/[place]/Iron/Folic Ac ( Multivitamin With Calcium/Folic Acid/Iron Tab) 1 each PO DAILY [facility] Last Admin: 12/28/20 08:56 Dose: 1 each Documented by: Sodium Chloride (Sodium Chloride 0.9% 10 Ml Syringe) 10 ml FLUSH ASDIRECTED PRN PRN Reason: Keep Vein Open Discontinued Medications Acetaminophen (Acetaminophen 325 Mg Tab) 650 mg PO NOW ONE Stop: 12/27/20 17:32 Last Admin: 12/27/20 17:38 Dose: 650 mg Documented by: Acetaminophen/Codeine Phosphate (Acetaminophen/Codeine 300-30 Mg Tab) 2 tab PO ONETIME ONE Stop: 12/27/20 06:30 Last Admin: 12/27/20 07:04 Dose: 2 tab Documented by: Cefazolin Sodium (Cefazolin 1 Gm Vial) Confirm Administered Dose 2 gm .ROUTE .STK-MED ONE Stop: 12/27/20 13:18 Citric Acid/Sodium Citrate (Citric Acid/Sodium Citrate Solution 30 Ml Cup) 30 ml PO ONETIME ONE Stop: 12/27/20 12:37 Last Admin: 12/27/20 19:34 Dose: Not Given Documented by: Dexamethasone (Dexamethasone 4 Mg/Ml 5 Ml Mdv) Confirm Administered Dose 20 mg .ROUTE .STK-MED ONE Stop: 12/27/20 13:19 Diphtheria/Tetanus/Acell Pertussis (Diphtheria,Pertussis(Acell),Tetanus Vaccine 0.5 Ml Syringe) 0.5 ml IM .ONCE ONE Stop: 12/27/20 14:46 Last Admin: 12/27/20 19:47 Dose: Not Given Documented by: Fentanyl (Fentanyl 250 Mcg/5 Ml Sdv) Confirm Administered Dose 250 mcg .ROUTE .STK-MED ONE Stop: 12/27/20 13:18 Sodium Chloride (Normal Saline) Confirm Administered Dose 1,000 mls @ as directed .ROUTE .STK-MED ONE Stop: 12/27/20 08:02 Last Admin: 12/27/20 08:34 Dose: 999 mls/hr Documented by: Dextrose/Lactated Ringer's (Dextrose 5%-Lactated Ringers) 1,000 mls @ 150 mls/hr IV ASDIRECTED [facility] Last Admin: 12/27/20 09:40 Dose: 150 mls/hr Documented by: Sodium Chloride (Normal Saline) 1,000 mls @ 999 mls/hr IV ONETIME ONE Stop: 12/27/20 09:35 Last Admin: 12/27/20 08:54 Dose: 999 mls/hr Documented by: Lactated Ringer's (Ringers, Lactated) 1,000 mls @ 125 mls/hr IV ASDIRECTED RAYNE Last Admin: 12/28/20 10:24 Dose: 125 mls/hr Documented by: Lidocaine HCl (Xylocaine-Mpf 1%) Confirm Administered Dose 4 mls @ as directed .ROUTE .STK-MED ONE Stop: 12/27/20 13:18 Lactated Ringer's (Ringers, Lactated) 1,000 mls @ 999 mls/hr IV .BOLUS ONE Stop: 12/27/20 19:19 Last Admin: 12/27/20 19:20 Dose: 999 mls/hr Documented by: Iopamidol (Iopamidol 612 Mg/Ml 100 Ml Bottle) 100 ml IVPUSH ONETIME ONE Stop: 12/27/20 16:52 Last Admin: 12/27/20 17:21 Dose: 100 ml Documented by: Nitrofurantoin Macrocrystals (Nitrofurantoin Monohydrate/Macrocrystalline 100 Mg Cap) 100 mg PO ONETIME ONE Stop: 12/27/20 06:28 Last Admin: 12/27/20 07:04 Dose: 100 mg Documented by: Ondansetron HCl (Ondansetron 4 Mg/2 Ml Sdv) Confirm Administered Dose 4 mg .ROUTE .STK-MED ONE Stop: 12/27/20 13:19 Oxycodone HCl (Oxycodone 5 Mg Tab) 10 mg PO ONETIME ONE Stop: 12/27/20 09:01 Last Admin: 12/27/20 08:52 Dose: 10 mg Documented by: Oxycodone HCl (Oxycodone 5 Mg Tab) 5 mg PO ONETIME ONE Stop: 12/27/20 18:22 Last Admin: 12/27/20 18:28 Dose: 5 mg Documented by: Propofol (Propofol 200 Mg/20 Ml Sdv) Confirm Administered Dose 200 mg .ROUTE .STK-MED ONE Stop: 12/27/20 13:18 Rocuronium [place] (Rocuronium 50 Mg/5 Ml Vial) Confirm Administered Dose 50 mg .ROUTE .STK-MED ONE Stop: 12/27/20 13:18 Sodium Chloride (Sodium Chloride 0.9% 10 Ml Syringe) 10 ml FLUSH ONETIME PRN PRN Reason: Keep Vein Open Stop: 12/27/20 18:00 Last Admin: 12/27/20 17:21 Dose: 10 ml Documented by: - Exam General: Reports: Alert, Oriented HEENT: Reports: Pupils Equal, Pupils Reactive, EOMI, Mucous Membr. Moist/[place] Neck: Reports: Supple Lungs: Reports: Clear to Auscultation, Normal Respiratory Effort Cardiovascular: Reports: Regular Rate, Regular Rhythm GI/Abdominal Exam: Normal Bowel Sounds, Soft, Non-Tender, No Organomegaly, No Distention, No Abnormal Bruit, No Mass, Pelvis Stable Back Exam: Reports: Normal Inspection, Full Range of Motion Extremities: Normal Inspection, Normal Range of Motion, Non-Tender, No Pedal Edema, Normal Capillary Refill Skin: Reports: Warm, Dry, Intact Wound/Incisions: Reports: Healing Well Neurological: Reports: No New Focal Deficit Psy/Mental Status: Reports: Alert, Normal Affect, Normal Mood
[2020-12-29 07:40] VITALS: BP 107/47; PULSE 76
[2020-12-29] MEDS: cefTRIAXone 2 GM in Sodium Chloride 0.9% 100 ML IV SCH (08:10)
[2020-12-29] MEDS: Prenatal Multivitamin with Calcium/Folic Acid/Iron Tab PO SCH (08:10)
[2020-12-29] MEDS: Ferrous Sulfate 324 MG Tab.EC PO SCH (08:10)
== END 2020-12-29 10:03 | disposition home or self-care (01) | DRG 833 ==
LOC: JD.OBCHECK 03:50 → JD.OB 03:54 → JD.OBCHECK 18:42 → UNDOADMIN 18:42 → JD.OB 18:42 → JD.MS 12-28 15:54 → JD.OB 12-28 15:54 → UNDODISIN 12-29 10:03
PROVIDERS: ADMIT Obstetrics & Gynecology; ATTEND Obstetrics & Gynecology
DX: O23.03 Infections of kidney in pregnancy, third trimester (principal); Z3A.28 28 weeks gestation of pregnancy; O99.613 Diseases of the digestive system complicating pregnancy, third trimester; K80.80 Other cholelithiasis without obstruction; Z20.822 Contact with and (suspected) exposure to COVID-19; B96.20 Unspecified Escherichia coli [E. coli] as the cause of diseases classified elsewhere
CPT/HCPCS: 36415; 59025; 74177; 76705; 76770; 80053; 80306; 81001; 83690; 85025; 86850; 86900; 86901; 87086; 87186; 87635; A9270 ×5; J0690; J0696; J2270; J7030 ×2; J7120; J7121; Q9967; 96360; 96361; 96365; 96374; J1100; J2405; J2704; J3010; U0002

== ENCOUNTER 2023-06-24 20:57 | Emergency (ER) | payer SELFPAY ==
[2023-06-24] MEDS ORDERED: Ondansetron 4 MG/2 ML SDV IVPUSH ONE (21:11)
[2023-06-24] MEDS ORDERED: Lactated Ringers 1,000 ML IV ONE (21:13)
[2023-06-24 21:38] LABS: BASOPHILS PERCENT AUTO 0.2 % (0.0-1.0); HEMATOCRIT 41.2 % (37.0-47.0); IMMATURE GRAN ABSOLUTE AUTO 0.08 K/mm3 (0.00-0.05); IMMATURE GRAN PERCENT AUTO 0.6 % (0.0-0.4); LYMPHOCYTES ABSOLUTE AUTO 1.1 K/mm3 (1.0-4.8); LYMPHOCYTES PERCENT AUTO 8.8 % (24.0-44.0); MEAN CORPUSCULAR HEMOGLOBIN 26.6 pg (28.0-32.0); MEAN CORPUSCULAR VOLUME 78.2 fl (83.0-99.0); MEAN PLATELET VOLUME 9.5 fl (9.4-12.3); MONOCYTES ABSOLUTE AUTO 0.3 K/mm3 (0.0-0.8); MONOCYTES PERCENT AUTO 2.1 % (0.0-8.0); NEUTROPHILS ABSOLUTE AUTO 11.3 K/mm3 (1.8-7.7); NEUTROPHILS PERCENT AUTO 88.3 % (41.0-71.0); PLATELET COUNT,PLT 254 K/mm3 (150-400); RED BLOOD CELL COUNT 5.27 M/mm3 (4.10-5.30); WHITE BLOOD CELL COUNT,WBC 12.77 K/mm3 (3.9-11.3)
[2023-06-24 21:57] LABS: A/G RATIO 0.9 (1-2); ALANINE AMINOTRANSFERASE,ALT 21 U/L (14-59); ALBUMIN 3.7 g/dl (3.4-5.0); ALKALINE PHOSPHATASE 73 U/L (46-116); ANION GAP 18.7 (5-15); ASPARTATE AMNIOTRANSFERASE,AST 16 U/L (15-37); BILIRUBIN TOTAL 0.5 mg/dL (0.2-1.0); BLOOD UREA NITROGEN,BUN 12 mg/dL (7-18); BUN/CREATININE RATIO 13.3 (14-18); CALCIUM 9.3 mg/dL (8.5-10.1); CARBON DIOXIDE,CO2 20 mEq/L (21-32); CHLORIDE,CL 106 mEq/L (98-107); CREATINE KINASE,CK 75 U/L (26-192); CREATININE 0.9 mg/dL (0.55-1.02); ESTIMATED GFR 87 mL/min (>60); GLUCOSE RANDOM 135 mg/dL (70-99); PROTEIN TOTAL,TP 7.9 g/dl (6.4-8.2); SODIUM,NA 141 mEq/L (136-145)
[2023-06-24 22:02] LABS: POTASSIUM,K 3.7 mEq/L (3.5-5.1)
[2023-06-24 22:27] LABS: CORONAVIRUS COVID-19 NAA NEGATIVE (NEGATIVE); INFLUENZA A NAA NEGATIVE (NEGATIVE); RESPIRATORY SYNCYTIAL VIR NAA NEGATIVE (NEGATIVE)
[2023-06-24 23:47] LABS: APPEARANCE,URINE SLT CLOUDY (Clear); BILIRUBIN,URINE NEGATIVE (Negative); COLOR,URINE YELLOW (Yellow); GLUCOSE,URINE NEGATIVE (Negative); KETONES,URINE 3+ (Negative); LEUKOCYTE ESTERASE,URINE TRACE (Negative); NITRITE,URINE POSITIVE (Negative); OCCULT BLOOD,URINE NEGATIVE (Negative); PROTEIN,URINE NEGATIVE (Negative)
[2023-06-25 00:01] LABS: BARBITURATE SCREEN,URINE NEGATIVE (CUTOFF=200); BENZODIAZEPINES SCREEN,URINE NEGATIVE (CUTOFF=150); BUPRENORPHINE SCREEN,URINE PRESUMPTIVE POSITIVE (CUTOFF=10); METHADONE SCREEN, URINE NEGATIVE (CUTOFF=200); METHAMPHETAMINES SCREEN, URINE NEGATIVE (CUTOFF=500); OXYCODONE SCREEN,URINE NEGATIVE (CUT0FF=100); THC SCREEN,URINE 20 NG/ML NEGATIVE (CUTOFF=50)
[2023-06-25 00:04] LABS: AMPHETAMINES SCREEN, URINE NEGATIVE (CUTOFF=500)
[2023-06-25 00:07] LABS: BACTERIA,URINE MANY /hpf (FEW); EPITHELIAL CELLS,URINE 0-5 /hpf (0-5); MUCUS,URINE NOT SEEN /hpf (FEW); RBC,URINE 0-5 /hpf (0-5)
[2023-06-25] MEDS ORDERED: cefTRIAXone 1 GM in Sodium Chloride 0.9% 100 ML IV ONE (00:13)
[2023-06-25 03:59] VITALS: BP 124/84; PULSE 89
== END 2023-06-25 03:48 | disposition home or self-care (01) ==
LOC: JD.ED 20:57
DX: N39.0 Urinary tract infection, site not specified (principal); Z20.822 Contact with and (suspected) exposure to COVID-19
CPT/HCPCS: 0241U; 36415; 80053; 80306; 81001; 82550; 84703; 85025; 96361; 96365; 96375; 99284; J0696; J2405; J3490; J7120